=== PATIENT | female | born 1970 | race Hispanic/Latino ===

== ENCOUNTER 2019-03-06 14:38 | Outpatient (CLI) | payer OTHER ==
--- NOTE | 2019-03-06 17:49 | RAD ---
CHEST TWO VIEWS 03/06/19 The heart is normal in size and the lungs are clear. No infiltrate or effusion was seen. There is no vascular congestion, edema, or other acute change. IMPRESSION: No acute finding. POS: HOME
== END 2019-03-06 14:39 | disposition home or self-care (01) ==
LOC: BURRAD 14:38
PROVIDERS: ATTEND Family Medicine
DX: R05 Cough (principal)
CPT/HCPCS: 71046

== ENCOUNTER 2023-09-17 23:01 | Emergency (ER) | payer BC ==
[2023-09-18 00:05] LABS: SARS-CoV-2 NAA Rapid Test DETECTED (NotDetected)
== END 2023-09-18 00:20 | disposition home or self-care (01) ==
LOC: BURERS 23:01
DX: U07.1 COVID-19 (principal)
CPT/HCPCS: 87081; 87430; 99283